=== PATIENT | female | born 1985 | race Caucasian/White ===

== ENCOUNTER 2017-09-10 17:11 | Outpatient (CLI) | payer MEDICAID | END 2017-09-10 20:15 | disposition home or self-care (01) | LOC: OBT 17:11 → L-D 17:14 → OBT 20:15 | DX: O9A.213 Injury, poisoning and certain other consequences of external causes complicating pregnancy, third trimester (principal); S39.92XA Unspecified injury of lower back, initial encounter; Z3A.33 33 weeks gestation of pregnancy; W19.XXXA Unspecified fall, initial encounter | CPT/HCPCS: 76818 ==

== ENCOUNTER 2017-10-20 09:02 | Inpatient (IN) | payer MEDICAID ==
[~2017-10-20 09:02] MED LIST: OXYTOCIN 30 UNITS/LR 500 ML BAG IV
[2017-10-20] MEDS ORDERED: CARBOPROST 250 MCG INJ IM ×2 (10:30→17:30)
[2017-10-20] MEDS ORDERED: MISOPROSTOL 200 MCG TAB PR ×2 (10:30→17:30)
[2017-10-20] MEDS ORDERED: METHYLERGONOVINE 0.2 MG INJ IM ×2 (10:30→17:30)
[2017-10-20] MEDS ORDERED: OXYTOCIN 30 UNITS/LR 500 ML IV ×2 (10:30→17:30)
[2017-10-20 10:40] LABS: ADD MAN DIFF? NO
[2017-10-20 10:44] LABS: BASOPHILS % 0.3 % (0.0-2.0); EOSINOPHILS # 0.1 10^3/ul (0.0-0.5); EOSINOPHILS % 1.4 % (0.0-7.0); HEMATOCRIT 36.4 % (37.0-47.0); HEMOGLOBIN 12.6 g/dl (12.0-16.0); LYMPHOCYTES # 1.4 10^3/ul (0.8-2.9); LYMPHOCYTES % 19.5 % (15.0-51.0); MEAN CORPUSCULAR HGB CONC 34.6 g/dl (32.0-37.0); MEAN CORPUSCULAR VOLUME 86.7 fl (82.0-101.0); MEAN PLATELET VOLUME 11.1 fl (7.4-10.4); MONOCYTE # 0.5 10^3/ul (0.3-0.9); MONOCYTES % 7.1 % (0.0-11.0); NEUTROPHILS % 71.3 % (39.0-77.0); PLATELET COUNT 174 10^3/UL (140-415)
[2017-10-20 10:47] LABS: INR 0.99; PROTIME 13.2 Sec (11.9-14.9)
[2017-10-20 10:48] LABS: PARTIAL THROMBOPLASTIN TIME 27.3 Sec (25.0-35.0)
[2017-10-20] MEDS: LACTATED RINGER'S 1,000 ML IV (11:11)
[2017-10-20] MEDS ORDERED: CITRIC ACID/SODIUM CITRATE 15 ML CUP PO (12:00)
[2017-10-20] MEDS ORDERED: ONDANSETRON 4 MG INJ IV ×3 (12:00→17:30)
[2017-10-20] MEDS ORDERED: morphine SULFATE/PF (10 MG/10 ML) INJ (12:15)
[2017-10-20] MEDS ORDERED: KETOROLAC 30 MG INJ (12:15)
[2017-10-20] MEDS ORDERED: DEXAMETHASONE 4 MG/ML 1 ML INJ (12:15)
[2017-10-20] MEDS ORDERED: ONDANSETRON 4 MG INJ (12:15)
[2017-10-20] MEDS ORDERED: OXYTOCIN 10 UNIT INJ (12:15)
[2017-10-20] MEDS ORDERED: PHENYLephrine (100 MCG/ML) 5ML SYG (12:15)
[2017-10-20] MEDS ORDERED: PHENYLephrine 10 MG INJ (12:15)
[2017-10-20] MEDS ORDERED: METOCLOPRAMIDE 10 MG INJ (12:15)
[2017-10-20] MEDS: CITRIC ACID/SODIUM CITRATE 15 ML CUP PO (12:22)
[2017-10-20] MEDS: ONDANSETRON 4 MG INJ IV (12:22)
[2017-10-20 12:32] LABS: HEPATITIS B SURFACE ANTIGEN NEGATIVE (NEGATIVE)
[2017-10-20] MEDS ORDERED: NALBUPHINE HCL (10 MG/1 ML) INJ IV (13:30)
[2017-10-20] MEDS ORDERED: HYDROCODONE/APAP (5/325) TAB PO ×2 (13:30→17:30)
[2017-10-20] MEDS ORDERED: morphine 2 MG INJ IV ×3 (13:30→17:30)
[2017-10-20] MEDS ORDERED: NALOXONE (0.4 MG/ML) INJ IV (13:30)
[2017-10-20] MEDS ORDERED: ACETAMINOPHEN 500 MG TAB PO (13:30)
[2017-10-20] MEDS ORDERED: HYDROmorphONE 0.5 MG/0.5 ML SYG IV ×2 (13:30)
[2017-10-20] MEDS: OXYTOCIN 30 UNITS/LR 500 ML IV ×2 (14:16→16:32)
[2017-10-20] MEDS: CEFAZOLIN 2 GM/50 ML (PMX) 50 ML IV (14:17)
[2017-10-20 15:01] LABS: RAPID PLASMA REAGIN NONREACTIVE (NR)
[2017-10-20] MEDS: DIPHENHYDRAMINE 50 MG INJ IV (15:15)
[2017-10-20] MEDS ORDERED: OXYCODONE/ACETAMINOPHEN (5/325) TAB PO (17:30)
[2017-10-20] MEDS: IBUPROFEN 600 MG TAB PO (18:00)
[2017-10-20] MEDS: SENNA/DOCUSATE NA (8.6MG/50MG) TAB PO (21:00)
[2017-10-20] MEDS: CEFAZOLIN 1 GM/50 ML (PMX) 50 ML IVPB (21:02)
[2017-10-21] MEDS: OXYTOCIN 30 UNITS/LR 500 ML IV ×6 (01:03→13:03)
[2017-10-21] MEDS: IBUPROFEN 600 MG TAB PO ×5 (01:31→23:44)
[2017-10-21] MEDS: KETOROLAC 30 MG INJ IV (05:56)
[2017-10-21] MEDS: SENNA/DOCUSATE NA (8.6MG/50MG) TAB PO ×2 (09:01→21:29)
[2017-10-21 09:16] LABS: ADD MAN DIFF? NO
[2017-10-21 09:19] LABS: BASOPHILS % 0.2 % (0.0-2.0); EOSINOPHILS # 0.1 10^3/ul (0.0-0.5); EOSINOPHILS % 0.8 % (0.0-7.0); HEMATOCRIT 35.1 % (37.0-47.0); HEMOGLOBIN 12.1 g/dl (12.0-16.0); LYMPHOCYTES # 1.6 10^3/ul (0.8-2.9); LYMPHOCYTES % 18.3 % (15.0-51.0); MEAN CORPUSCULAR HEMOGLOBIN 30.3 pg (29.0-33.0); MEAN CORPUSCULAR HGB CONC 34.5 g/dl (32.0-37.0); MEAN CORPUSCULAR VOLUME 87.8 fl (82.0-101.0); MEAN PLATELET VOLUME 10.8 fl (7.4-10.4); MONOCYTE # 0.7 10^3/ul (0.3-0.9); NEUTROPHIL # 6.4 10^3/ul (1.6-7.5); NEUTROPHILS % 72.4 % (39.0-77.0); PLATELET COUNT 153 10^3/UL (140-415); RED CELL DISTRIBUTION WIDTH 12.6 % (11.5-14.5)
[2017-10-21 09:19] LABS: WHITE BLOOD COUNT 8.9 10^3/ul (4.8-10.8)
[2017-10-21] MEDS: LANOLIN 7 GM TUBE TOP (10:49)
[2017-10-21] MEDS: OXYCODONE/ACETAMINOPHEN (5/325) TAB PO (16:30)
[2017-10-21] MEDS: INFLUENZA VIRUS VACCINE 0.5 ML (DISPENSING) IM* (18:32)
[2017-10-21] MEDS: HYDROCODONE/APAP (5/325) TAB PO (21:30)
[2017-10-22] MEDS: IBUPROFEN 600 MG TAB PO ×4 (05:22→23:40)
[2017-10-22] MEDS: SENNA/DOCUSATE NA (8.6MG/50MG) TAB PO ×2 (08:43→21:28)
[2017-10-23] MEDS: IBUPROFEN 600 MG TAB PO ×2 (05:26→13:08)
[2017-10-23] MEDS: SENNA/DOCUSATE NA (8.6MG/50MG) TAB PO (09:38)
[2017-10-23] MEDS: DIPHTH/TET/ACEL PERTUSS (ADULT) 0.5 ML VIAL IM* (13:09)
== END 2017-10-23 14:25 | disposition home or self-care (01) | DRG 766 ==
LOC: L-D 09:02 → PP1 16:52
PROVIDERS: Obstetrics & Gynecology
PROC: 10D00Z1 Extraction of Products of Conception, Low, Open Approach (ICD-10-PCS; principal; 2017-10-20 12:30)
PROC: 0UL70ZZ Occlusion of Bilateral Fallopian Tubes, Open Approach (ICD-10-PCS; 2017-10-20 12:30)
PROC: 3E033VJ Introduction of Other Hormone into Peripheral Vein, Percutaneous Approach (ICD-10-PCS; 2017-10-20 12:30)
DX: O34.211 Maternal care for low transverse scar from previous cesarean delivery (principal); Z37.0 Single live birth; Z3A.39 39 weeks gestation of pregnancy
CPT/HCPCS: 85025; 85610; 85730; 86592; 86850; 86900; 86901; 87340; 88302; 88304; 90686; 90715; 94760; 99464